=== PATIENT | female | born 1970 | race Caucasian/White ===

== ENCOUNTER → 2018-02-05 | Emergency (ER) | payer OTHER ==
[~2018-02-05] VITALS: Ht 149.9 cm; Wt 52.2 kg
[~2018-02-05] MED LIST: ZANTAC150 M3
== END | disposition home or self-care (01) ==
LOC: ER 13:39
DX: K29.70 Gastritis, unspecified, without bleeding (principal)

== ENCOUNTER 2018-10-13 00:18 | Emergency (ER) | payer OTHER ==
[~2018-10-13] VITALS: Ht 149.9 cm; Wt 52.2 kg
== END 2018-10-13 10:49 | disposition home or self-care (01) ==
LOC: ER 00:18
DX: K52.89 Other specified noninfective gastroenteritis and colitis (principal); E86.0 Dehydration